=== PATIENT | female | born 1975 | race Caucasian/White ===

== ENCOUNTER 2016-03-15 23:38 | Emergency (ER) | payer MEDICAID ==
[~2016-03-15] VITALS: Ht 152.4 cm; Wt 75.5 kg
[~2016-03-15 23:38] MED LIST: PRENAT PO
[2016-03-16 00:31] VITALS: Ht 152.4 cm; Wt 75.5 kg
[2016-03-16 05:32] LABS: BASOPHIL # 0.1 10^3/ul (0.0-0.1); BASOPHILS % 0.6 % (0.0-2.0); EOSINOPHILS # 0.2 10^3/ul (0.0-0.5); HEMATOCRIT 38.5 % (37.0-47.0); HEMOGLOBIN 13.5 g/dl (12.0-16.0); LYMPHOCYTES # 2.9 10^3/ul (0.8-2.9); LYMPHOCYTES % 33.1 % (15.0-51.0); MEAN CORPUSCULAR HEMOGLOBIN 30.7 pg (29.0-33.0); MEAN CORPUSCULAR HGB CONC 35.2 g/dl (32.0-37.0); MEAN CORPUSCULAR VOLUME 87.4 fl (82.0-101.0); MEAN PLATELET VOLUME 9.1 fl (7.4-10.4); MONOCYTE # 0.9 10^3/ul (0.3-0.9); NEUTROPHIL # 4.7 10^3/ul (1.6-7.5); NEUTROPHILS % 54.3 % (39.0-77.0); PLATELET COUNT 229 10^3/UL (140-440); RED CELL DISTRIBUTION WIDTH 14.1 % (11.5-14.5); UNCORRECTED WBC 8.6 10^3/ul (4.8-10.8); WHITE BLOOD COUNT 8.6 10^3/ul (4.8-10.8)
[2016-03-16 05:38] LABS: ALBUMIN 4.4 g/dl (3.3-4.9)
[2016-03-16 05:39] LABS: POTASSIUM 4.1 mmol/L (3.5-5.1)
[2016-03-16 05:41] LABS: ALBUMIN/GLOBULIN RATIO 1.02; BILIRUBIN,INDIRECT 0.1 mg/dl (0-1.1); BILIRUBIN,TOTAL 0.1 mg/dl (0.2-1.3); CREATININE 0.7 mg/dl (0.44-1.00); TOTAL PROTEIN 8.7 g/dl (6.1-8.1)
[2016-03-16 05:42] LABS: CALCIUM 9.8 mg/dl (8.4-10.2); CONDITION 1
[2016-03-16 05:44] LABS: ADD UMIC NO; URINE BILIRUBIN (Dip) NEGATIVE (NEGATIVE); URINE BLOOD (Dip) NEGATIVE (NEGATIVE); URINE COLOR LT. YELLOW (YELLOW); URINE GLUCOSE (Dip) NEGATIVE (NEGATIVE); URINE KETONES (Dip) NEGATIVE (NEGATIVE); URINE LEUKOCYTE ESTERASE (Dip) NEGATIVE (NEGATIVE); URINE NITRITE (Dip) NEGATIVE (NEGATIVE); URINE TOTAL PROTEIN (Dip) NEGATIVE (NEGATIVE); URINE UROBILINOGEN (Dip) 0.2 E.U./dL (0.1-1.0)
--- NOTE | 2016-03-16 05:53 | ERD ---
ER Documentation Chief Complaint Date/Time DATE: 03/16/16 TIME: 05:50 Chief Complaint rectal pain,pelvic pain,denies bleeding (TATYANA MAGDALENO) HPI This is a 40-year-old female presents to the ER with rectal pain that radiates to her pelvic area for the last week. Patient states that she does have urinary frequency and dysuria. Patient denies any nausea vomiting or diarrhea. Patient does have a history of constipation however denies any rectal bleeding. Patient' s last bowel movement was yesterday. Patient states that rectal pain as sharp and intermittent is severe. Patient states that she screams secondary to pain. She tried garlic pills to alleviate pain however did not work. (TATYANA MAGDALENO) ROS 12 point review of systems was done, all negative except per HPI. (TATYANA MAGDALENO) Medications Home Meds Active Scripts Naproxen* (Naprosyn*) 500 Mg Tablet, 500 MG PO BID, #30 TAB Prov:DUKE FOX PA-C 03/16/16 Magnesium Citrate* (Magnesium Citrate*) 296 Ml Solution, 296 ML PO ONCE, #1 BOTTLE Prov:DUKE FOX PA-C 03/16/16 Docusate Sodium* (Colace*) 100 Mg Capsule, 100 MG PO BID, #60 CAP Prov:DUKE FOX PA-C 03/16/16 Reported Medications Multivit/Min/Fol Ac/Iron/Pren* ( S*) 1 Tab Tab, 1 TAB PO DAILY, TAB 10/13/13 Allergies Allergies: Coded Allergies: No Known Allergy (Unverified , 03/16/16) PMhx/Soc Medical and Surgical Hx: pt denies Medical Hx History of Surgery: Yes () Anesthesia Reaction: No Hx Neurological Disorder: No Hx Respiratory Disorders: No Hx Cardiac Disorders: No Hx Psychiatric Problems: No Hx Miscellaneous Medical Probl: No Hx Alcohol Use: No Hx Substance Use: No Hx Tobacco Use: No Smoking Status: Never smoker (TATYANA MAGDALENO) Physical Exam Vitals Vital Signs Date Time Temp Pulse Resp B/P Pulse Ox O2 Delivery O2 Flow Rate FiO2 03/16/16 06:34 83 18 104/60 100 Room Air 03/16/16 00:31 98.5 88 18 118/79 98 (DUKE FOX PA-C) Physical Exam GENERAL: The patient is well developed and appropriate for usual state of health , in no apparent distress. HEENT: Atraumatic. CHEST: Clear to auscultation bilaterally. There are no rales, wheezes or rhonchi. HEART: Regular rate and rhythm. No murmurs, clicks, rubs or gallops. ABDOMEN: Soft, nontender and nondistended. Good bowel sounds. No rebound or guarding. No gross peritonitis. No gross organomegaly or masses. No London sign or McBurney point tenderness. Patient is tender to palpation in the left lower pelvic area and right lower pelvic area BACK: No midline or flank tenderness. RECTAL; no anal fissures, no hemorrhoids seen. NEURO: Alert and oriented (TATYANA MAGDALENO) Result Diagram: 03/16/1644403/16/165 Results 24 hrs Laboratory Tests Test 03/16/16 04:45 Alanine Aminotransferase (ALT/SGPT) 75IU/L Albumin 4.4g/dl Albumin/Globulin Ratio 1.02 Alkaline Phosphatase 119IU/L Anion Gap 18 Aspartate Amino Transf (AST/SGOT) 40IU/L Basophils # 0.110^3/ul Basophils % 0.6% Blood Urea Nitrogen 22mg/dl Calcium Level 9.8mg/dl Carbon Dioxide Level 28mmol/L Chloride Level 102mmol/L Creatinine 0.70mg/dl Direct Bilirubin 0.00mg/dl Eosinophils # 0.210^3/ul Eosinophils % 2.0% Globulin 4.30g/dl Glucose Level 106mg/dl Hematocrit 38.5% Hemoglobin 13.5g/dl Indirect Bilirubin 0.1mg/dl Lipase 119U/L Lymphocytes # 2.910^3/ul Lymphocytes % 33.1% Mean Corpuscular Hemoglobin 30.7pg Mean Corpuscular Hemoglobin Concent 35.2g/dl Mean Corpuscular Volume 87.4fl Mean Platelet Volume 9.1fl Monocytes # 0.910^3/ul Monocytes % 10.0% Neutrophils # 4.710^3/ul Neutrophils % 54.3% Nucleated Red Blood Cells # 0.010^3/ul Nucleated Red Blood Cells % 0.0/100WBC Platelet Count 66613^3/UL Potassium Level 4.1mmol/L Red Blood Count 4.4010^6/ul Red Cell Distribution Width 14.1% Sodium Level 144mmol/L Total Bilirubin 0.1mg/dl Total Protein 8.7g/dl Urine Bilirubin NEGATIVE Urine Clarity CLEAR Urine Color LT. YELLOW Urine Glucose NEGATIVE% Urine Hemoglobin NEGATIVE Urine Ketones NEGATIVE Urine Leukocyte Esterase NEGATIVE Urine Nitrite NEGATIVE Urine Specific [place] 1.015 Urine Total Protein NEGATIVE Urine Urobilinogen 0.2 E.U./dL Urine pH 6.0 White Blood Count 8.610^3/ul Current Medications Medications (Trade) Dose Ordered Sig/Cipriano Route PRN Reason Start Time Stop Time Status Last Admin Dose Admin IV Flush 10 ml 10 ml STK-MED ONCE .ROUTE 03/16/16 05:59 03/16/16 06:00 DC 03/16/16 06:03 Sodium Chloride (NS) 100 ml @ ud STK-MED ONCE .ROUTE 03/16/16 05:59 03/16/16 06:00 DC 03/16/16 06:03 Iohexol (Omnipaque 300mg/ ml) 150 ml STK-MED ONCE .ROUTE 03/16/16 05:59 03/16/16 06:00 DC 03/16/16 06:03 Morphine Sulfate (morphine) 6 mg ONCE ONCE IV 03/16/16 06:30 03/16/16 06:31 DC 03/16/16 06:16 Ondansetron HCl (Zofran Inj) 4 mg ONCE STAT IV 03/16/16 06:10 03/16/16 06:11 DC 03/16/16 06:16 PROCEDURE: CT ABDOMEN/PELVIS WITH CONTRAST CLINICAL INDICATION: 40-year-old female with abdominal pain. TECHNIQUE: The study was performed utilizing a GE [employer] VCT 64-slice CT scanner. Direct axial sections were obtained through the abdomen and pelvis with the use of 90 cc of . nonionic intravenous contrast material. Sagittal and coronal reformations were obtained. Automated exposure control and iterative reconstruction techniques were utilized for this examination. The images were reviewed on a PACS workstation. CTD/vol = 15.9 mGy; Total Exam DLP = 952.0 mGy-cm. COMPARISON: Ultrasound pelvis March 16, 2016. FINDINGS: The lung bases are unremarkable. There is no evidence for significant pleural effusion. The liver has a normal size and contour. There is marked diffuse decreased density throughout the liver consistent with fatty infiltration without focal areas of abnormal density or contrast enhancement. No intrahepatic nor extrahepatic biliary ductal dilatation is seen. The gallbladder demonstrates no wall thickening nor pericholecystic fluid. No biliary stones are evident. The pancreas is without areas of abnormal attenuation or contrast enhancement. This spleen is identified and has a normal size without abnormal density or contrast enhancement. The adrenal glands are unremarkable. The kidneys are functional bilaterally. There is a cyst within the upper pole of the left kidney measuring approximately 1.3 x 1.7 x 1.8 cm on axial image 3-84. No hydroureteronephrosis nor nephroureterolithiasis is evident. The urinary bladder contains urine. There is fecalization of the distal small bowel. There is mild retained stool identified within the colon without gross bowel obstruction. The appendix is visualized and is without edema or surrounding inflammatory reaction. The uterus is unremarkable. There is a partially collapsed left ovarian cyst measuring approximately 13 x 17 x 16 mm. There is no significant free fluid. The aortoiliac vessels are without aneurysmal dilatation. The osseous structures are intact. IMPRESSION: 1. Marked diffuse fatty infiltration of the liver. 2. Left upper pole renal cyst. 3. Small bowel fecalization with retained colonic stool without gross bowel obstruction. 4. No CT evidence for appendicitis. 5. Partially collapsed left ovarian cyst. .Jaron Garcia MD, MD Date Time Electronically viewed and signed by .Jaron Garcia MD, on 03/16/2016 06:35 .M/ PROCEDURE: US pelvis complete and transvaginal CLINICAL INDICATION: pelvic pain TECHNIQUE: Gastelum scale and color Doppler imaging of the pelvis was performed. Endovaginal scanning was performed for more detailed evaluation of the endometrium. The images were reviewed on a PACS workstation. COMPARISON: None. FINDINGS: The uterus measures 9.2 x 4.5 x 5.5 centimeters. The right ovary measures 2 point number 1.6 x 1.8 centimeters and the left ovary measures 3.2 x 2.3 x 2.2 centimeters. The endometrial stripe measures 10 millimeters in thickness and is unremarkable in appearance. No fibroids are seen. The ovaries are unremarkable in appearance. No free fluid is seen. Small cervical Nabothian cysts. Gross Doppler flow of the ovaries. IMPRESSION: No definite acute abnormality. RPTAT: HLBE Johanny Darden, Physician Date Time Electronically viewed and signed by Johanny Darden, Physician on 03/16/2016 06 :05 (DUKE FOX PA-C) Procedures/MDM This is a 40-year-old female presents to the ER with rectal pain and pelvic pain differential diagnosis includes but is not limited to; external hemorrhoid , internal hemorrhoid, anal fissure, anal abscess, urinary tract infection, pyelonephritis, nephrolithiasis. I discussed this case with Dr. Kimbrough. I am awaiting diagnostic studies. Please see next providers notes for further management and care. (TATYANA MAGDALENO) 40-year-old female with signed out to me. She complains of rectal pain, ultrasound was unremarkable, CT abdomen and pelvis shows a large amount of retained stool without bowel obstruction. She is lying comfortably at this time , there are no signs of infectious process, perianal abscess, versus perirectal abscess, cellulitis. She is going to be discharged with magnesium citrate and Colace as well as Naprosyn for pain. (DUKE FOX PA-C) Departure Diagnosis: Primary Impression: Rectal pain Additional Impression: Acute pain in female pelvis Condition: Good TATYANA MAGDALENO Mar 16, 2016 05:53 DUKE FOX PA-C Mar 16, 2016 07:10
[2016-03-16] MEDS ORDERED: IOHEXOL 300MG/ML 150 ML BTL ONE (05:59)
[2016-03-16] MEDS ORDERED: SOD CHLORIDE 0.9% 100 ML ONE (05:59)
--- NOTE | 2016-03-16 06:06 | RADRPT ---
PROCEDURE: US pelvis complete and transvaginal CLINICAL INDICATION: pelvic pain TECHNIQUE: Gastelum scale and color Doppler imaging of the pelvis was performed. Endovaginal scanning was performed for more detailed evaluation of the endometrium. The images were reviewed on a PACS workstation. COMPARISON: None. FINDINGS: The uterus measures 9.2 x 4.5 x 5.5 centimeters. The right ovary measures 2 point number 1.6 x 1.8 centimeters and the left ovary measures 3.2 x 2.3 x 2.2 centimeters. The endometrial stripe measure s 10 millimeters in thickness and is unremarkable in appearance. No fibroids are seen. The ovaries a re unremarkable in appearance. No free fluid is seen. Small cervical Nabothian cysts. Gross Doppler flow of the ovaries. IMPRESSION: No definite acute abnormality. RPTAT: HLBE Physician Bina Date Time Electronically viewed and signed by Physician Bina on 03/16/2016 06:05 CHRISSY/
[2016-03-16] MEDS ORDERED: ONDANSETRON 4 MG INJ IV STA (06:10)
[2016-03-16] MEDS ORDERED: morphine 10 MG INJ IV ONE (06:30)
[2016-03-16 06:34] VITALS: BP 104/60; PULSE 83; RESP 18
--- NOTE | 2016-03-16 06:35 | RADRPT ---
PROCEDURE: CT ABDOMEN/PELVIS WITH CONTRAST CLINICAL INDICATION: 40-year-old female with abdominal pain. TECHNIQUE: The study was performed utilizing a GE [employer] VCT 64-slice CT scanner. Direct axia l sections were obtained through the abdomen and pelvis with the use of 90 cc of . nonionic intrave nous contrast material. Sagittal and coronal reformations were obtained. Automated exposure control and iterative reconstruction techniques were utilized for this examination. The images were reviewe d on a PACS workstation. CTD/vol = 15.9 mGy; Total Exam DLP = 952.0 mGy-cm. COMPARISON: Ultrasound pelvis March 16, 2016. FINDINGS: The lung bases are unremarkable. There is no evidence for significant pleural effusion. The liver has a normal size and contour. There is marked diffuse decreased density throughout the liver consi stent with fatty infiltration without focal areas of abnormal density or contrast enhancement. No in trahepatic nor extrahepatic biliary ductal dilatation is seen. The gallbladder demonstrates no wall thickening nor pericholecystic fluid. No biliary stones are evident. The pancreas is without areas o f abnormal attenuation or contrast enhancement. This spleen is identified and has a normal size wit hout abnormal density or contrast enhancement. The adrenal glands are unremarkable. The kidneys are functional bilaterally. There is a cyst within the upper pole of the left kidney measuring approxim ately 1.3 x 1.7 x 1.8 cm on axial image 3-84. No hydroureteronephrosis nor nephroureterolithiasis is evident. The urinary bladder contains urine. There is fecalization of the distal small bowel. There is mild retained stool identified within the colon without gross bowel obstruction. The append ix is visualized and is without edema or surrounding inflammatory reaction. The uterus is unremarkab le. There is a partially collapsed left ovarian cyst measuring approximately 13 x 17 x 16 mm. There is no significant free fluid. The aortoiliac vessels are without aneurysmal dilatation. The osseou s structures are intact. IMPRESSION: 1. Marked diffuse fatty infiltration of the liver. 2. Left upper pole renal cyst. 3. Small bowel fecalization with retained colonic stool without gross bowel obstruction. 4. No CT evidence for appendicitis. 5. Partially collapsed left ovarian cyst. .Gilbert Radha, MD, Date Time Electronically viewed and signed by .Jaron Garcia MD, on 03/16/2016 06:35 .M/
[2016-03-16] MEDS ORDERED: MAGN296S40 PO (07:05)
[2016-03-16] MEDS ORDERED: NAPR-260 PO (07:05)
[2016-03-16] MEDS ORDERED: DOCU-144 PO (07:05)
[2016-03-16] MEDS ORDERED: ONDANSETRON (ODT) 4 MG TAB ODT STA (07:10)
== END 2016-03-16 07:16 | disposition home or self-care (01) ==
LOC: FTE 23:38
DX: K62.89 Other specified diseases of anus and rectum (principal); R10.2 Pelvic and perineal pain
CPT/HCPCS: 36415; 74177; 76830; 76856; 80053; 81003; 83690; 85025; 96374; 96375; J2270; J2405; Q9967; Z7502; Z7610

== ENCOUNTER 2017-06-04 20:20 | Emergency (ER) | END 2017-06-05 03:17 | disposition home or self-care (01) ==

== ENCOUNTER 2018-04-08 10:27 | Emergency (ER) | payer MEDICAID ==
[~2018-04-08] VITALS: Ht 160 cm; Wt 77.3 kg
[~2018-04-08 10:27] MED LIST changes: +DOCU-144 PO; +MAGN296S40 PO; +NAPR-985 PO; +POLY17PO6 PO
[2018-04-08 11:43] VITALS: Ht 160 cm; Wt 77.3 kg
[2018-04-08] MEDS ORDERED: IPRATROPIUM (NEB) 0.5 MG/2.5 ML AMP NEB STA (12:46)
[2018-04-08] MEDS ORDERED: DEXAMETHASONE 10 MG/ML 1 ML INJ IM STA (12:46)
[2018-04-08] MEDS ORDERED: ALBUTEROL 0.5% (NEB) 2.5 MG/0.5 ML AMP INH STA (12:46)
[2018-04-08] MEDS ORDERED: AZIT250T PO (14:28)
[2018-04-08] MEDS ORDERED: BENZ-6 PO (14:28)
[2018-04-08] MEDS ORDERED: ALBU8.5H8 INH (14:28)
--- NOTE | 2018-04-08 14:37 | ERD ---
ER Documentation Chief Complaint Chief Complaint C/O SORE THROAT, HARD TO SWALLOW WITH COUGH FOR 4 DAYS; NO DROOLING HPI Patient is a 42-year-old female with no past medical history presents the ER for concerns of sore throat and cough times 8 days. Patient states her throat is extremely dry. She states she has pain with swallowing. Patient has no drooling. Patient states her cough is also dry. Patient denies any chest pain or shortness of breath. Patient states she is been taking [id number] medication with minimal alleviation of symptoms. Patient admits to tactile fevers. she did not check her temperature with thermometer. Patient denies any nausea, vomiting, abdominal pain or diarrhea. Patient denies any ear pain. Patient's son is a sick contact and is also being evaluated today. ROS All systems reviewed and are negative except as per history of present illness. Medications Home Meds Active Scripts Benzonatate* (Tessalon Perle*) 100 Mg Capsule, 100 MG PO Q8H PRN for COUGH, #20 CAP Prov:GENARO MCARTHUR PA-C 04/08/18 Azithromycin* (Zithromax*) 250 Mg Tablet, 250 MG PO .ZPACK DIRECTED, #6 TAB TAKE 500 MG (2 TABS) THE FIRST DAY THEN 250 MG (1 TAB) DAYS 2-5 Prov:GENARO MCARTHUR PA-C 04/08/18 Albuterol Sulfate* (Proair HFA*) 8.5 Gm Hfa.aer.ad, 2 PUFF INH Q6, #1 INHALER Prov:GENARO MCARTHUR PA-C 04/08/18 Polyethylene Glycol* (Miralax*) 17 Gm Powd.pack, 17 GM PO BID, #60 PACKET Prov:LI,LYNN 06/05/17 Magnesium Citrate* (Magnesium Citrate*) 296 Ml Solution, 296 ML PO ONCE, #1 BOTTLE Prov:LI,LYNN 06/05/17 Naproxen* (Naprosyn*) 500 Mg Tablet, 500 MG PO BID, #30 TAB Prov:DUKE FOX PA-C 03/16/16 Magnesium Citrate* (Magnesium Citrate*) 296 Ml Solution, 296 ML PO ONCE, #1 BOTTLE Prov:DUKE FOX PA-C 03/16/16 Docusate Sodium* (Colace*) 100 Mg Capsule, 100 MG PO BID, #60 CAP Prov:DUKE FOX MARIA ALEJANDRA 03/16/16 Reported Medications Multivit/Min/Fol Ac/Iron/Pren* ( S*) 1 Tab Tab, 1 TAB PO DAILY, TAB 10/13/13 Allergies Allergies: Coded Allergies: No Known Allergy (Unverified , 04/08/18) PMhx/Soc History of Surgery: Yes ( X'S 2) Anesthesia Reaction: No Hx Neurological Disorder: No Hx Respiratory Disorders: No Hx Cardiac Disorders: No Hx Psychiatric Problems: No Hx Miscellaneous Medical Probl: No Hx Alcohol Use: No Hx Substance Use: No Hx Tobacco Use: No FmHx Family History: No diabetes Physical Exam Vitals Vital Signs Date Temp Pulse Resp B/P (MAP) Pulse Ox O2 O2 Flow FiO2 Time Delivery Rate 04/08/18 81 18 99 21 13:09 04/08/18 98.4 70 18 122/77 100 11:43 (92) Physical Exam GENERAL: Well-developed, well-nourished female speaking full sentences.. Appears in no acute distress. HEAD: Normocephalic, atraumatic. No deformities or ecchymosis. EYE: Pupils equal, round, and reactive to light. EOMs intact. No conjunctival erythema. No eye discharge. ENT: External ear without any masses or tenderness. Auditory canals clear bilaterally. TM visualized bilaterally, non-erythematous, non-bulging. Nasal congestion noted on exam. Patient is tender to palpation of bilateral frontal and maxillary sinuses. Oropharynx is pink without any tonsillar erythema or exudates. No uvula deviation. No kissing tonsils. NECK: Supple. No meningismus. Normal ROM of the neck. LUNG: Bilateral expiratory wheezing noted. No abdominal retractions, nasal flaring, no tripoding. HEART: Regular rate and rhythm. No murmurs, rubs or gallops. EXTREMITES: Equal pulses bilaterally. No peripheral clubbing, cyanosis or edema. No unilateral leg swelling. NEUROLOGIC: Alert and oriented to person, place and time. Moving all four extremities. 5/5 strength in all extremities. Normal speech. Steady gait. SKIN: Normal color. Warm and dry. No rashes or lesions. Results 24 hrs Current Medications Medications Dose Sig/Cipriano Start Time Status Last (Trade) Ordered Route PRN Stop Time Admin Dose Reason Admin Ipratropium 1 mg ONCE STAT 04/08/18 DC 04/08/18 [place] NEB 12:46 13:07 (Atrovent 04/08/18 12:48 0.02% (Neb)) Albuterol 5 mg ONCE STAT 04/08/18 DC 04/08/18 (Proventil INH 12:46 13:07 0.5% (Neb)) 04/08/18 12:48 10 mg ONCE STAT 04/08/18 DC 04/08/18 Dexamethasone IM 12:46 12:55 (Decadron) 04/08/18 12:48 Procedures/MDM ED COURSE: The patient was stable throughout ED course. I kept the patient and/or family informed of laboratory and diagnostic imaging results throughout the ED course. DIAGNOSTIC IMAGING: Read by radiologist. Patient: EVER BARRIOS : 1975 Age: 42 Sex: F MR #: [id number] DOS: 04/08/18 1246 Ordering MD: GENARO MCARTHUR PA-C Location: [facility] Room/Bed: PROCEDURE: XR Chest. CLINICAL INDICATION: Asthma exacerbation. TECHNIQUE: Chest, 1 view. COMPARISON: None. FINDINGS: The cardiomediastinal silhouette is normal in size. No focal consolidation is seen. No pleural effusion is seen. No definite pneumothorax is seen. No acute osseous abnormality. IMPRESSION: No radiographic evidence of an acute cardiopulmonary process. RPTAT: AAEE Physician Dylan Date Time Electronically viewed and signed by Alondra Perkins Physician on 04/08/2018 13:41 PH/ CC: GENARO MCARTHUR PA-C [id number] PROCEDURES: None. MEDICATIONS GIVEN: Albuterol/ipratropium breathing treatment, Decadron Patient tolerated medication well with no adverse reactions. \ MEDICAL DECISION MAKING: This is a 42-year-old female presents to the ER for concerns of a cough and nasal congestion times 8 days.. Patient was afebrile. Patient was not hypoxic. On lung exam, patient did have bilateral expiratory wheezing. Patient had no signs of acute respiratory distress. Patient reported improvement in wheezing after breathing treatment. Chest x-ray was unremarkable. Patient likely has bronchitis and sinusitis. Patient will be treated with course of antibiotics. Low suspicion for acute coronary syndrome, pneumothorax, pneumonia, TB, influenza, pertussis, GERD, allergic rhinitis, deep space infection, she mellitus, strep pharyngitis, meningitis. Patient was nontoxic, [id number] prior to discharge. PRESCRIPTIONS: Albuterol inhaler, Tessalon Perles, Z-Rigo DISCHARGE: At this time, patient is stable for discharge and outpatient management. I have instructed the patient to follow-up with his/her primary care physician in 1-2 days. If symptoms persist, patient may need to see a specialist for further examinations and testing. I have instructed the patient to promptly return to the ER at any time for any new or worsening symptoms including increased increased pain, fever, nausea, vomiting, numbness, shortness of breath, weakness, ongoing wheezing, retractions or LOC. The patient and/or family expressed understanding of and agreement with this plan. All questions were answered. Home care instructions were provided. Disclaimer: Inadvertent spelling and grammatical errors are likely due to EHR/dictation software use and do not reflect on the overall quality of patient care. Also, please note that the electronic time recorded on this note does not necessarily reflect the actual time of the patient encounter. Departure Diagnosis: Primary Impression: Bronchitis Additional Impressions: Wheezing Sinusitis Sinusitis location: unspecified location Chronicity: unspecified Qualified Codes: J32.9 - Chronic sinusitis, unspecified Condition: Fair Patient Instructions: Bronchitis With Wheezing (Adult) Referrals: [facility] () Usted se morel hecho un examen mdico de control que le indica que no est en manuel condicin que requiera tratamiento urgente en el Departamento de Emergencia. Un estudio ms profundo y el tratamiento de corley condicin pueden esperar sin ningn riesgo hasta que usted sea atendida/o en el consultorio de corley mdico o manuel clnica. Es responsabilidad suya arreglar manuel margaux para el seguimiento del naun. MANEJO DE CONDICIONES NO URGENTES EN EL FUTURO 1) Si usted tiene un mdico de atencin primaria: Usted debera llamar a corley mdico de atencin primaria antes de venir al departamento de emergencia. Despus de las horas de consultorio, corley doctor o corley asociado/a est disponible por telfono. El mdico o enfermero de oleg en el servicio telefnico puede asesorarle por chelo medio para atender el problema, o naun contrario se puede programar manuel margaux. 2) Si usted no tiene un mdico de atencin primaria: Llame al mdico o clnica de referencia que aparece abajo chon las horas de consultorio para hacer manuel margaux para que le vean. CLINICAS: [facility] [phone] [facility] [phone] [facility] [phone] [address] [facility] [phone] [address] [facility]. [facility] [phone] [address] [facility]. [phone] [address] [facility]. [facility] () Usted se morel hecho un examen mdico de control que le indica que no est en manuel condicin que requiera tratamiento urgente en el Departamento de Emergencia. Un estudio ms profundo y el tratamiento de corley condicin pueden esperar sin ningn riesgo hasta que usted sea atendida/o en el consultorio de corley mdico o manuel clnica. Es responsabilidad suya arreglar manuel margaux para el seguimiento del naun. MANEJO DE CONDICIONES NO URGENTES EN EL FUTURO 1) Si usted tiene un mdico de atencin primaria: Usted debera llamar a corley mdico de atencin primaria antes de venir al departamento de emergencia. Despus de las horas de consultorio, corley doctor o corley asociado/a est disponible por telfono. El mdico o enfermero de oleg en el servicio telefnico puede asesorarle por chelo medio para atender el problema, o naun contrario se puede programar manuel margaux. 2) Si usted no tiene un mdico de atencin primaria: Llame al mdico o condado institucions de referencia que aparece abajo chon las horas de consultorio para hacer manuel margaux para que le vean. SI USTED NO PUEDE PAGAR PARA DEANN UN MEDICO puede ir a: [facility] [address] [place] [address] [facility] [address] [place] [address] [facility] [address] [place] [address] [address] [facility] [address] [place], [place] [id number] Additional Instructions: Llame al doctor MAANA y jacques manuel MARGAUX PARA DENTRO DE 1-2 HAMMOND.Dgale a la secretaria que nosotros le instruimos hacer esta margaux.Avise o llame si corley condicin se empeora antes de la margaux. Regresa aqui si peor o no mejor. GENARO MCARTHUR PA-C Apr 08, 2018 14:37
[2018-04-08 14:47] VITALS: BP 106/63; PULSE 95; RESP 18
== END 2018-04-08 14:51 | disposition home or self-care (01) ==
LOC: FTE 10:27
DX: J40 Bronchitis, not specified as acute or chronic (principal); J32.9 Chronic sinusitis, unspecified
CPT/HCPCS: 71045; 94644; 96372; J1100; Z7502; Z7610

== ENCOUNTER 2018-08-30 17:52 | Emergency (ER) | payer MEDICAID ==
[~2018-08-30] VITALS: Ht 152.4 cm; Wt 78.1 kg
[~2018-08-30 17:52] MED LIST changes: +ALBU8.5H8 INH; +AZIT250T PO; +BENZ-6 PO
[2018-08-30 18:01] VITALS: Ht 152.4 cm; Wt 78.1 kg
[2018-08-30] MEDS ORDERED: KETOROLAC 30 MG INJ IM STA (20:20)
[2018-08-30] MEDS ORDERED: MED4DP PO (20:58)
[2018-08-30] MEDS ORDERED: ACET325T33 PO (20:58)
[2018-08-30] MEDS ORDERED: IBUP-1542 PO (20:59)
[2018-08-30 21:17] VITALS: BP 115/62; PULSE 78; RESP 16
--- NOTE | 2018-08-30 21:42 | ERD ---
ER Documentation Chief Complaint Chief Complaint LEFT RIB PAIN X2 MONTHS, NO INJURY HPI 43-year-old female presented to ED for left side pain x2 months. Patient denies any injuries to aggravate the symptoms. Patient was recently seen in another ER and had a full work-up done and she brought her results and CT scan showed the patient has a small cyst on her left kidney but otherwise was unremarkable. Patient's O2 saturations are 100% and all vitals are within normal limits. Patient denies any allergies to medication. ROS All systems reviewed and are negative except as per history of present illness. Medications Home Meds Active Scripts Ibuprofen* (Motrin*) 600 Mg Tab, 600 MG PO Q6, #30 TAB Prov:MARY STUART PA-C 08/30/18 Acetaminophen* (Tylenol*) 325 Mg Tablet, 1 TAB PO Q6 PRN for PAIN AND OR ELEVATED TEMP, #20 TAB Prov:MARY STUART PA-C 08/30/18 Methylprednisolone* (Medrol* DOSE PACK) 4 Mg/Dose-Pack Tab.ds.pk, 4 MG PO . DIRECTED for 7 Days, PACKET Prov:MARY STUART PA-C 08/30/18 Benzonatate* (Tessalon Perle*) 100 Mg Capsule, 100 MG PO Q8H PRN for COUGH, #20 CAP Prov:GENARO MCARTHUR PA-C 04/08/18 Azithromycin* (Zithromax*) 250 Mg Tablet, 250 MG PO .ZPACK DIRECTED, #6 TAB TAKE 500 MG (2 TABS) THE FIRST DAY THEN 250 MG (1 TAB) DAYS 2-5 Prov:GENARO MCARTHUR PA-C 04/08/18 Albuterol Sulfate* (Proair HFA*) 8.5 Gm Hfa.aer.ad, 2 PUFF INH Q6, #1 INHALER Prov:GENARO MCARTHUR PA-C 04/08/18 Polyethylene Glycol* (Miralax*) 17 Gm Powd.pack, 17 GM PO BID, #60 PACKET Prov:LI,LYNN 06/05/17 Magnesium Citrate* (Magnesium Citrate*) 296 Ml Solution, 296 ML PO ONCE, #1 BOTTLE Prov:LI,LYNN 06/05/17 Naproxen* (Naprosyn*) 500 Mg Tablet, 500 MG PO BID, #30 TAB Prov:DUKE FOX PA-C 03/16/16 Magnesium Citrate* (Magnesium Citrate*) 296 Ml Solution, 296 ML PO ONCE, #1 BOTTLE Prov:DUKE FOX PA-C 03/16/16 Docusate Sodium* (Colace*) 100 Mg Capsule, 100 MG PO BID, #60 CAP Prov:DUKE FOX PA-C 03/16/16 Reported Medications Multivit/Min/Fol Ac/Iron/Pren* ( S*) 1 Tab Tab, 1 TAB PO DAILY, TAB 10/13/13 Allergies Allergies: Coded Allergies: No Known Allergy (Unverified , 04/08/18) PMhx/Soc History of Surgery: Yes ( X'S 2) Anesthesia Reaction: No Hx Neurological Disorder: No Hx Respiratory Disorders: No Hx Cardiac Disorders: No Hx Psychiatric Problems: No Hx Miscellaneous Medical Probl: No Hx Alcohol Use: No Hx Substance Use: No Hx Tobacco Use: No Smoking Status: Never smoker FmHx Family History: No diabetes, No coronary disease, No other Physical Exam Vitals Vital Signs Date Temp Pulse Resp B/P (MAP) Pulse Ox O2 O2 Flow FiO2 Time Delivery Rate 08/30/18 98.6 78 16 115/62 100 Room Air 21:17 (79) 08/30/18 98.5 79 17 113/56 100 18:01 (75) Physical Exam Const: No acute distress Head: Atraumatic Eyes: Normal Conjunctiva ENT: Normal External Ears, Nose and Mouth. Neck: Full range of motion. No meningismus. Resp: Clear to auscultation bilaterally, pain to palpation to the ribs. Cardio: Regular rate and rhythm, no murmurs Abd: Soft, non tender, non distended. Normal bowel sounds Skin: No petechiae or rashes Back: No midline or flank tenderness Results 24 hrs Laboratory Tests Test 08/30/18 20:35 08/30/18 20:38 Urine Color YELLOW Urine Clarity SLIGHTLY CLOUDY Urine pH 6.0 Urine Specific [place] 1.014 Urine Ketones NEGATIVE mg/dL Urine Nitrite NEGATIVE mg/dL Urine Bilirubin NEGATIVE mg/dL Urine Urobilinogen NEGATIVE mg/dL Urine Leukocyte Esterase TRACE Yola/ul Urine Microscopic RBC 1 /HPF Urine Microscopic WBC 1 /HPF Urine Squamous Epithelial Cells MODERATE /HPF Urine Bacteria FEW /HPF Urine Hemoglobin NEGATIVE mg/dL Urine Glucose NEGATIVE mg/dL Urine Total Protein NEGATIVE mg/dl POC Beta HCG, Qualitative NEGATIVE Current Medications Medications Dose Sig/Cipriano Start Time Status Last (Trade) Ordered Route PRN Stop Time Admin Dose Reason Admin Ketorolac 30 mg ONCE STAT 08/30/18 DC 08/30/18 Tromethamine IM 20:20 20:42 (Toradol) 08/30/18 20:22 Procedures/MDM Medical decision making: Patient is a 43-year-old female presented to ED for left rib pain x2 months. Patient was recently seen in another ED for the same symptoms was discharged. Patient brought her paperwork and her CT scan only revealed she has a small cyst on her left kidney. Patient's UA was unremarkable. Patient's physical exam was noted pain to palpation to the ribs. Patient states she did have a cough early in the week but it has resided. Patient's vital signs are within normal limits and patient is satting at 100%. Lungs were clear bilateral. At this time I have low suspicion for pneumonia, CHF, ID, sepsis, UTI, pneumothorax, pleuritis, myocarditis, pyelonephritis. Patient will be discharged with NSAIDs and steroids with instructions to follow-up with her primary care provider. I advised patient if symptoms worse return to ER immediately. Patient is agreement treatment plan had no further questions upon discharge Prescription for home: NSAIDs Acetaminophen Mental Dosepak I have discussed with the patient proper use and common side effects to expert with the medication . I advised the patient/family to speak with the pharmacist dispensing the medication to be advised of any potential drug interactions with other medication or supplements they may be taking. Discharge: At this time, patient is stable for discharge and outpatient management. I have instructed the patient to follow-up with his\her primary care physician in 1 to 2 days. I have discussed with the patient the possibility of needing to see a specialist for further work-up and imaging studies if symptoms persist. I have instructed the patient to promptly return to the ER for any new or worsening symptoms including increased pain, fever, nausea, vomiting, weakness or LOC. The patient and\or family expressed understanding of and agreement with this plan. All questions were answered. Home care instructions were provided. Disclaimer: Inadvertent spelling and grammatical errors are likely due to EHR\dictation software use and do not reflect on the overall quality of patient care. Also, please note that the electronic time recorded on the note does not necessarily reflect the actual time of the patient encounter. Departure Diagnosis: Primary Impression: Costochondritis Condition: Stable Patient Instructions: Costochondritis Referrals: PEG LE MD, VINOD M MD AYUSTE, BRIAN MD [place], GUITA MD [facility] YOU HAVE RECEIVED A MEDICAL SCREENING EXAM AND THE RESULTS INDICATE THAT YOU DO NOT HAVE A CONDITION THAT REQUIRES URGENT TREATMENT IN THE EMERGENCY DEPARTMENT. FURTHER EVALUATION AND TREATMENT OF YOUR CONDITION CAN WAIT UNTIL YOU ARE SEEN IN YOUR DOCTORS OFFICE WITHIN THE NEXT 1-2 DAYS. IT IS YOUR RESPONSIBILITY TO MAKE AN APPOINTMENT FOR FOLOW-UP CARE. IF YOU HAVE A PRIMARY DOCTOR --you should call your primary doctor and schedule an appointment IF YOU DO NOT HAVE A PRIMARY DOCTOR YOU CAN CALL OUR PHYSICIAN REFERRAL HOTLINE AT IF YOU CAN NOT AFFORD TO SEE A PHYSICIAN YOU CAN CHOSE FROM THE FOLLOWING [facility] [id number] [facility] [id number] [facility] [address] [facility] [address] [facility] [address] [facility] [facility] [address] [facility] [facility] YOU HAVE RECEIVED A MEDICAL SCREENING EXAM AND THE RESULTS INDICATE THAT YOU DO NOT HAVE A CONDITION THAT REQUIRES URGENT TREATMENT IN THE EMERGENCY DEPARTMENT. FURTHER EVALUATION AND TREATMENT OF YOUR CONDITION CAN WAIT UNTIL YOU ARE SEEN IN YOUR DOCTORS OFFICE WITHIN THE NEXT 1-2 DAYS. IT IS YOUR RESPONSIBILITY TO MAKE AN APPOINTMENT FOR FOLOW-UP CARE. IF YOU HAVE A PRIMARY DOCTOR --you should call your primary doctor and schedule and appointment IF YOU DO NOT HAVE A PRIMARY DOCTOR YOU CAN CALL OUR PHYSICIAN REFERRAL HOTLINE AT . IF YOU CAN NOT AFFORD TO SEE A PHYSICIAN YOU CAN CHOSE FROM THE FOLLOWING [facility] INSTITUTIONS: [facility] [id number] [place] [address] [facility] [address] [place] [address] [facility] + [facility] [address] [place] [address] Additional Instructions: Llame al doctor MAANA y jacques manuel MARGAUX PARA DENTRO DE 1-2 HAMMOND.Dgale a la sec retaria que nosotros le instruimos hacer esta margaux.Avise o llame si corley condicin se empeora antes de la margaux. Regresa aqui si peor o no mejor. MARY STUART PA-C Aug 30, 2018 21:42
== END 2018-08-30 21:18 | disposition home or self-care (01) ==
LOC: FTE 17:52
DX: M94.0 Chondrocostal junction syndrome [Tietze] (principal)
CPT/HCPCS: 81001; 81025; 96372; J1885; Z7502